=== PATIENT | male | born 1975 | race African-American/Black ===

== ENCOUNTER 2021-01-05 16:32 | Inpatient (IN) | payer OTHER, SELFPAY ==
--- NOTE | ~2021-01-05 | US_ITS ---
EXAMINATION: US ABDOMEN LIMITED CLINICAL INFORMATION: Acute cholecystitis.. COMPARISON: CT abdomen pelvis 01/05/2021 TECHNIQUE: Real-time imaging of the right upper quadrant abdominal viscera. Color Doppler exam used. FINDINGS: PANCREAS: Obscured by bowel gas LIVER: Diffuse increased echogenicity of liver parenchyma due to fatty change. No focal liver lesion or intrahepatic bile duct dilatation. The right lobe of liver is enlarged measuring 20 cm. GALLBLADDER: No gallstone or gallbladder wall thickening. No pericholecystic fluid. Sludge present in the dependent gallbladder. COMMON BILE DUCT: Normal in caliber measuring 0.4 cm in diameter. RIGHT KIDNEY: Normal. No hydronephrosis. No renal calculi or focal parenchymal lesions. The kidney measures 10.4 cm in maximum dimension. FREE FLUID: None. US/US abdomen limited IMPRESSION: 1. Diffuse fatty change of liver. Mild hepatomegaly. 2. No acute change of the gallbladder. Sludge in gallbladder. No bile duct dilatation.
--- NOTE | ~2021-01-05 | CT_ITS ---
EXAMINATION: CT ABDOMEN AND PELVIS WITHOUT CONTRAST CLINICAL INFORMATION: Diffuse abdominal pain. Worse in the epigastrium. Elevated LFTs. COMPARISON: None TECHNIQUE: Multidetector volumetric imaging was performed from the superior aspect of the liver through the pubic symphysis. Sagittal and coronal reformatted images were obtained on the technologist's workstation. This CT examination was performed using dose optimization techniques as appropriate, variously including the following: *Automated exposure control *Adjustment of mA and/or kV according to patient size (this includes techniques or standardized protocols for targeted exams where dose is matched to indication/reason for exam; i.e. extremities or head) *Use of iterative reconstruction technique DLP: 485 mGy-cm FINDINGS: LUNG BASES: The visualized lung bases are unremarkable. LIVER, GALLBLADDER, AND BILIARY TREE: There is marked low attenuation of liver parenchyma due to fatty change. The liver is mildly enlarged. The right lobe of liver measures 20 cm superior inferior. There is no focal liver lesion or intrahepatic bile duct dilatation. There is mildly high density material filling the dependent half of the gallbladder. The nondependent half has isodense fluid with the liver. No radiopaque gallstone. PANCREAS: There is edema around the pancreas. This is consistent with a pancreatitis. The density of the pancreatic parenchyma is homogeneous. No pancreatic duct dilatation or pancreatic calcification. The fluid from the pancreatitis tracks along the right anterior pararenal fascia into the right paracolic gutter and tracks into the cul-de-sac and the pelvis. No pseudocyst formation. SPLEEN: Unremarkable. ADRENAL GLANDS: Unremarkable. KIDNEYS AND URETERS: The kidneys are normal in size, shape, and attenuation. No hydronephrosis, hydroureter, or calculi seen. No perinephric stranding. BLADDER: Unremarkable. GASTROINTESTINAL TRACT: There is mild dilatation of small bowel loops with air-fluid levels but no transition point. Gas also mildly distends the transverse colon. Bowel pattern suggests ileus. No bowel wall thickening or edema. The appendix is not seen. ABDOMINAL WALL: No significant hernia is appreciated. LYMPH NODES: Normal. VASCULAR: Unremarkable. PELVIC VISCERA: Unremarkable. OSSEOUS STRUCTURES: Unremarkable. CT/CT abdomen pelvis wo con IMPRESSION: 1. Pancreatitis. 2. Distended loops of bowel most consistent with ileus. 3. Diffuse fatty change of liver. Mild hepatomegaly. 4. High density material dependent gallbladder. This is likely due to sludge.
[2021-01-05 16:36] VITALS: BP 136/74; PULSE 103; RESP 18; TEMP 37.6; O2SAT 100; BMI 25.5
[2021-01-05 18:45] LABS: Basophils Percent Auto 0.1 % (0-2); Eosinophils Percent Auto 0.1 % (0-4); Hematocrit 38.6 % (42-52); Hemoglobin 14.8 g/dl (14.0-18.0); Imm Gran Abs Auto 0.03 X10*3/uL (0.00-0.03); Imm Gran Pct Auto 0.4 % (0.0-0.4); Lymphocytes Absolute Auto 0.8 X10*3/uL (1.2-4.9); MANUAL DIFF FLAG SCAN; Mean Corpuscular Hemoglobin 31.9 pg (27.0-33.0); Mean Corpuscular Volume 83.2 fL (80-98); Mean Platelet Volume 12.6 fL (9.4-12.4); Monocytes Absolute Auto 0.3 X10*3/uL (0.1-1.2); Monocytes Percent Auto 3.6 % (2-11); Neutrophils Absolute Auto 5.9 X10*3/uL (2.0-8.3); Neutrophils Percent Auto 83.8 % (45-73); Red Blood Count 4.64 X10*6/uL (4.60-5.80); Red Cell Distribution Width 13.8 % (11.0-16.0); SCAN SMEAR FLAG 1
[2021-01-05 19:06] LABS: Alanine Aminotransferase 200 U/L (0-40); Albumin Level 3.1 g/dL (3.5-5.0); Alkaline Phosphatase 171 U/L (39-117); Anion Gap 13 (12-20); Aspartate Amino Transferase 195 U/L (5-37); Bilirubin Direct 0.6 mg/dL (0.0-0.5); Bilirubin Total 1.1 mg/dL (0.0-1.0); Blood Urea Nitrogen 3 mg/dL (9-16); Calcium 7.6 mg/dL (8.4-10.2); Carbon Dioxide 24 mmol/L (22-29); Chloride 96 mmol/L (96-108); Creatinine Clr Calc Pharmacy 113.3; Estimated Glomerular Filt Rate > 60; Glucose Random 86 mg/dL (60-115); Lipase 413 U/L (8-78); Potassium 3.4 mmol/L (3.3-5.1); Sodium 130 mmol/L (135-145); Total Protein 6.9 g/dL (6.5-8.0)
[2021-01-05 19:17] LABS: Platelet Count 70 X10*3/uL (160-400)
[2021-01-05 19:19] LABS: Mean Corpuscular HGB Conc 38.3 g/dl (31.0-36.0); SLIDE REVIEW VERIFIED
[2021-01-05 19:51] VITALS: BP 117/72; PULSE 105; RESP 18; TEMP 37.8; O2SAT 96
[2021-01-05 20:00] VITALS: BP 105/76; PULSE 104; RESP 24
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
[2021-01-05 20:11] VITALS: RESP 24
[2021-01-05] MEDS: Morphine Sulfate 4 MG/ML CARTRIDGE IVPUSH (20:11)
[2021-01-05] MEDS: ondansetron HCL 4 MG/2 ML VIAL IVPUSH (20:12)
[2021-01-05 21:13] LABS: IDNOW Serial# 9DD0AD1C
[2021-01-05 21:14] LABS: COVID-19 Test Negative (Negative)
[2021-01-05 22:00] VITALS: BP 120/78; PULSE 96; RESP 18; O2SAT 94
--- NOTE | 2021-01-05 22:47 | PM.IMHP ---
History of Present Illness Date of Service: 01/05/21 Chief Complaint: Abdominal pain High patient is a 45-year-old male with no significant past medical history who presents to the hospital with complaints of abdominal pain. Patient reports that he went to [facility] on the day prior for the same, but was kicked out of the hospital after refusing Ativan for alcohol withdrawal. Patient describes the pain as epigastric, 9/10, radiating to the chest, and pelvis area, not associated with any nausea or vomiting but has been feeling chills and feverish. No previous similar episode. No exacerbating or relieving factors. Patient reports that for the past multiple months has been drinking heavily every day about 8-10 beers daily. He denies having any headache, change in vision, chest pain, no diarrhea constipation, no urinary symptoms and no lower extremity edema. No weakness numbness or tingling. On arrival to the ED hemodynamically stable with no significant abnormal vitals Labs are significant for WBC count of 7, sodium of 130, potassium 3.4, BUN of 3, creatinine of 0.8, total bili of 1.1, direct bili 0.6, AST of 195, ALT of 200, alk-phos of 171 lipase of 413. Abdominal CT shows pancreatitis, distended loops of bowels most consistent with ileus. Diffuse fatty changes of liver with hepatomegaly. And dense material dependent gallbladder. This is likely due to sludge. Spoke extensively with patient about his alcohol use and most likely cause of his pancreatitis. Patient would like to quit. Currently is not interested in starting any medication for his potential withdrawals and would like to wait until he starts withdrawing before he starts taking any withdrawal medications. His last drink was 2 days ago. Patient will be admitted for further management of acute pancreatitis Review of Systems Review of Systems: Yes all other systems are reviewed and are negative PMFSH Medical History Alcohol abuse Pertinent family history: Denies Social History Alcohol intake: current Alcohol intake frequency: 3 or more drinks per day Alcohol type: beer Smoking Status: Current every day smoker Smoked in Last 30 Days: Yes Use of substances other than those prescribed or required for medical reasons: No Advance Directives: No Advance Directives Information Provided: Yes Meds Allergies Allergy/AdvReac Type Severity Reaction Status Date / Time No Known Allergies Allergy Verified 01/05/21 22:49 Home Medications Medication Instructions Recorded Confirmed Last Taken Type No Known Home Meds 01/05/21 01/05/21 Unknown History Physical Exam Vital Signs and Narrative: Vital Signs: Last Vital Signs Temp 100.0 F 01/05/21 19:51 Pulse 96 01/05/21 22:00 Resp 18 01/05/21 22:00 BP 120/78 01/05/21 22:00 Pulse Ox 94 01/05/21 22:00 Body Mass Index 25.5 Const: General: cooperative and no acute distress Orientation/consciousness: patient oriented x3 Eyes: General: appearance normal, both eyes and all related structures Resp: Effort & Inspection: normal respiratory effort and able to speak in complete sentences Cardio: Rate: regular rate Rhythm: regular rhythm GI: Other: Diffuse Abdominal tenderness, guarding, no rebound Palpation (GI): Soft to palpation Auscultation: Hyperactive bowel sounds present Skin: General skin exam: no rashes or lesions noted Neuro: General: patient oriented x3 Cognition (Neuro): normal cognition Extrem: General: Yes normal to inspection and Yes no pedal edema Results Labs CBC and Chem 7: 01/05/21 18:21 01/05/21 18:21 Labs: Laboratory Results - last 24 hr 01/05/21 01/05/21 01/05/21 18:20 18:21 18:21 MCV 83.2 MCH 31.9 MCHC 38.3 H RDW 13.8 Plt Count 70 L MPV 12.6 H Immature Gran % (Auto) 0.4 Neut % (Auto) 83.8 H Lymph % (Auto) 12.0 L [place] % (Auto) 3.6 Eos % (Auto) 0.1 Baso % (Auto) 0.1 Lymph # (Auto) 0.8 L [place] # (Auto) 0.3 Eos # (Auto) 0.0 Baso # (Auto) 0.0 Abs Immat Gran (auto) 0.03 Absolute Neuts (auto) 5.9 Absolute Nucleated RBC 0.000 Nucleated RBC % (auto) 0.0 Smear Tech's Comments VERIFIED Hold Purple Top Hold Blue Top SEE NOTE Anion Gap 13 Estim Creat Clear Calc 113.3 Estimated GFR > 60 Random Glucose 86 Calcium 7.6 L Total Bilirubin 1.1 H Direct Bilirubin 0.6 H AST 195 H ALT 200 H Alkaline Phosphatase 171 H Total Protein 6.9 Albumin 3.1 L Lipase 413 H COVID-19 (GUILLERMINA) COVID-19 Clin Com 01/05/21 01/05/21 18:21 20:16 MCV MCH MCHC RDW Plt Count MPV Immature Gran % (Auto) Neut % (Auto) Lymph % (Auto) [place] % (Auto) Eos % (Auto) Baso % (Auto) Lymph # (Auto) [place] # (Auto) Eos # (Auto) Baso # (Auto) Abs Immat Gran (auto) Absolute Neuts (auto) Absolute Nucleated RBC Nucleated RBC % (auto) Smear Tech's Comments Hold Purple Top SEE NOTE Hold Blue Top Anion Gap Estim Creat Clear Calc Estimated GFR Random Glucose Calcium Total Bilirubin Direct Bilirubin AST ALT Alkaline Phosphatase Total Protein Albumin Lipase COVID-19 (GUILLERMINA) Negative COVID-19 Clin Com See Note Imaging Radiologist's Impressions: Impressions Abdomen/Pelvis CT 01/05/21 19:59 IMPRESSION: 1. Pancreatitis. 2. Distended loops of bowel most consistent with ileus. 3. Diffuse fatty change of liver. Mild hepatomegaly. 4. High density material dependent gallbladder. This is likely due to sludge. Assessment and Plan (1) Acute pancreatitis: Qualifiers: Acute pancreatitis complication: unspecified Pancreatitis type: alcohol induced Qualified Code(s): K85.20 - Alcohol induced acute pancreatitis without necrosis or infection Status: Acute (2) Ileus: Status: Acute (3) Transaminitis: Status: Acute (4) Alcohol abuse: Status: Inactive This is a 45-year-old male with past medical history of alcohol abuse who presents to the hospital with abdominal pain found to have acute pancreatitis # acute pancreatitis - most likely secondary to alcohol abuse, does have abnormal findings of the gallbladder but no evidence of cholecystitis or gallbladder stone - will start him on IV fluids - pain control - will also consult surgery for possible evaluation of the transaminitis secondary to gallbladder sludge # ileus - most likely secondary to pancreatitis - will offer him bowel rest - and supportive measures # transaminitis - ALT more than AST, also has alk phos elevation - CT an abdominal ultrasound both demonstrated sludge with no evidence of cholelithiasis, cholangitis or any duct stones - will consult general surgery # alcohol abuse - will start patient on CIWA - Supplement with THiamine and folic acid daily - willing to start phenobarb if necessary prophylaxis: Lovenox
[2021-01-06] VITALS (7 sets, daily range): BP systolic 102–132; BP diastolic 67–86; PULSE 80–98; RESP 14–18; TEMP 36.5–37.9; O2SAT 95–98
[2021-01-06 07:21] LABS: MANUAL DIFF FLAG NO
[2021-01-06 07:27] LABS: Basophils Percent Auto 0.2 % (0-2); Eosinophils Absolute Auto 0.1 X10*3/uL (0.0-0.4); Eosinophils Percent Auto 0.9 % (0-4); Hematocrit 35.7 % (42-52); Hemoglobin 13.3 g/dl (14.0-18.0); Imm Gran Abs Auto 0.03 X10*3/uL (0.00-0.03); Imm Gran Pct Auto 0.5 % (0.0-0.4); Lymphocytes Absolute Auto 1.1 X10*3/uL (1.2-4.9); Lymphocytes Percent Auto 16.3 % (20-40); Mean Corpuscular HGB Conc 37.3 g/dl (31.0-36.0); Mean Corpuscular Volume 83.2 fL (80-98); Mean Platelet Volume 12.8 fL (9.4-12.4); Monocytes Absolute Auto 0.4 X10*3/uL (0.1-1.2); Monocytes Percent Auto 5.6 % (2-11); Neutrophils Absolute Auto 4.9 X10*3/uL (2.0-8.3); Neutrophils Percent Auto 76.5 % (45-73); Red Blood Count 4.29 X10*6/uL (4.60-5.80); Red Cell Distribution Width 13.6 % (11.0-16.0); White Blood Count 6.4 X10*3/uL (4.8-10.8)
[2021-01-06 07:59] LABS: Anion Gap 15 (12-20); Blood Urea Nitrogen 4 mg/dL (9-16); Calcium 7.7 mg/dL (8.4-10.2); Carbon Dioxide 23 mmol/L (22-29); Chloride 102 mmol/L (96-108); Estimated Glomerular Filt Rate > 60; Glucose Random 72 mg/dL (60-115); Potassium 3.5 mmol/L (3.3-5.1); Sodium 136 mmol/L (135-145)
[2021-01-06] MEDS: Folic Acid 1 MG TABLET PO (08:00)
[2021-01-06] MEDS: Thiamine HCL 100 MG TABLET PO (08:00)
[2021-01-06] MEDS: Enoxaparin Sodium 40 MG/0.4 ML SYRINGE SUBCUT (08:03)
--- NOTE | 2021-01-06 08:07 | PC.NURSE ---
PT REQUESTING VITAMIN WATER/GATORADE. INFORMED OF NPO STATUS. STATES WANTS TO GO TO STORE AND THEN WILL COME BACK. HARD TO RE-DIRECT. AMB TO [facility], VOIDED.
[2021-01-06 08:21] LABS: Platelet Count 58 X10*3/uL (160-400)
[2021-01-06 08:33] LABS: Alanine Aminotransferase 144 U/L (0-40); Albumin Level 2.7 g/dL (3.5-5.0); Alkaline Phosphatase 146 U/L (39-117); Aspartate Amino Transferase 118 U/L (5-37); Bilirubin Direct 0.5 mg/dL (0.0-0.5); Total Protein 5.8 g/dL (6.5-8.0)
[2021-01-06] MEDS: 0.9 % Sodium Chloride 1,000 ML 150 ML IVCONT ×2 (09:48→23:04)
--- NOTE | 2021-01-06 10:31 | MHC.CM.ED ---
Attempted to meet with patient in regards to discharge planning. Patient is currently sleeping. Will attemtp to meet again. Continue to monitor for d/c needs.
[2021-01-06] MEDS: hydrOXYzine HCL 25 MG TABLET PO ×2 (11:22→20:16)
--- NOTE | 2021-01-06 11:34 | PC.NURSE ---
Pt became very agitated asking to go to the cafeteria and raising his voice at staff. He was able to be re-directed back to bed. Juice was offered. He was given PRN Atarax and offered blankets. He was made comfortable in his bed and at this time is calm and cooperative.
--- NOTE | 2021-01-06 12:15 | HO.PM.IMPN ---
Subjective Subjective Date of Service: 01/06/21 Interval History: the patient was seen and evaluated this morning Laying in bed, complaining of epigastric pain and nausea Denies any fever, chills or shortness of breath No reported other overnight events. Systemic review: No fever, chills or weakness No chest pain, palpitation No shortness of breath or coughing Abdominal pain, nausea, episodes of vomiting No urinary symptoms No any rash or wounds Physical Exam Vital Signs: Vital Signs: Last Vital Signs Temp 97.7 F 01/06/21 11:21 Pulse 96 01/06/21 11:21 Resp 18 01/06/21 11:21 BP 111/79 01/06/21 11:21 Pulse Ox 96 01/06/21 11:21 Body Mass Index 25.5 Const: Other: Constitutional : Alert, oriented, not in distress Neck : Normal inspection, Supple Cardiovascular : RRR, S1 S2, no lower extremity edema Respiratory : Good bilateral air entry, no crackles, wheezes or rhonchi Gastrointestinal: soft, lax, decreased bowel sounds, generalized tenderness mainly in the upper part of the abdomen, no surgical signs Skin : Warm/Dry, No rash Neurological : Alert & oriented x3, No focal deficit Objective Data Current Medications Generic Name Dose Route Start Last Admin Trade Name Freq PRN Reason Stop Dose Admin Acetaminophen 650 mg 01/06/21 03:20 Acetaminophen 325 Mg Tablet PO Q6H PRN Pain, Mild (Pain Scale 1-3) Enoxaparin Sodium 40 mg 01/06/21 09:00 01/06/21 08:03 Enoxaparin Sodium 40 Mg/0.4 Ml Syringe SUBCUT 40 mg Q24H CHANTALE Administration Folic Acid 1 mg 01/06/21 09:00 01/06/21 08:00 Folic Acid 1 Mg Tablet PO 1 mg DAILY CHANTALE Administration Hydroxyzine HCl 25 mg 01/06/21 03:20 01/06/21 11:22 Hydroxyzine Hcl 25 Mg Tablet PO 25 mg Q8H PRN Administration anxiety/restlessness Sodium Chloride 1,000 mls @ 150 mls/hr 01/06/21 08:15 01/06/21 09:48 Ns IVCONT 01/08/21 00:14 150 mls/hr .Q6H40M CHANTALE Administration Morphine Sulfate 4 mg 01/06/21 07:52 Morphine Sulfate 4 Mg/Ml Cartridge IVPUSH Q4H PRN Pain, Severe (Pain Scale 7-10) Ondansetron HCl 4 mg 01/06/21 03:20 Ondansetron Hcl 4 Mg/2 Ml Vial IVPUSH Q8H PRN Nausea and Vomiting Sodium Chloride 3 ml 01/06/21 03:20 01/06/21 10:21 0.9 % Sodium Chloride Flush 3 Ml Syringe IVFLUSH Not Given QSHIFT CHANTALE Thiamine HCl 100 mg 01/06/21 09:00 01/06/21 08:00 Thiamine Hcl 100 Mg Tablet PO 100 mg DAILY CHANTALE Administration Labs CBC & Chem 7: 01/06/21 07:15 01/06/21 07:15 Assessment and Plan (1) Acute pancreatitis: Status: Acute (2) Ileus: Status: Acute (3) Transaminitis: Status: Acute (4) Alcohol abuse: Status: Inactive Assessment and Plan: This is a 45-year-old male with past medical history of alcohol abuse who presents to the hospital with abdominal pain found to have acute pancreatitis acute alcoholic pancreatitis secondary to alcohol abuse Ultrasound showing sludge of gallbladder but no evidence of cholecystitis or gallbladder stone Continue aggressive IV fluid Morphine for pain control With Zofran for nausea Clear liquid diet as tolerated ileus secondary to pancreatitis Passing gas this morning IVF, clear liquids Pending surgery evaluation transaminitis CT an abdominal ultrasound both demonstrated sludge with no evidence of cholelithiasis, cholangitis or any duct stones Improving, likely from drinking History of alcohol abuse Risk of withdrawal Continue patient on CIWA Supplement with THiamine and folic acid daily Monitor for the need of phenobarbital prophylaxis: Lovenox
--- NOTE | 2021-01-06 12:56 | PM.CNGS ---
History of Present Illness Consult details Consult date: 01/06/21 Narrative: 45M admitted early this morning for actue pancreatitis. He admits to being a heavy drinker. He usually has several bottles of bear everyday. He did not want to be interviewed so the history is mostly based on the admitting notes. He apparently had gone to another institution for abdominal pain but ad refused ativan for ETOH withdrawal so he was (?)kicked out. He did state that he has been stressed and has had anxiety for a long time now, hence the heavy drinking. Other than that, he states that he really did not want to answet questions. His CT showed findings c/w acute pancreatitis. Review of Systems Constitutional: Constitutional: Denies chills and Denies fever(s) Cardiovascular: Cardiovascular: Denies chest pain, Denies dyspnea and Denies dyspnea on exertion Respiratory: Respiratory: Denies cough, Denies dyspnea and Denies dyspnea on exertion Gastrointestinal: Gastrointestinal: Denies hematochezia and Denies change in bowel habits Genitourinary: Genitourinary: Denies hematuria and Denies difficulty urinating Musculoskeletal: Musculoskeletal: Denies back pain and Denies limited range of motion Neurologic: Denies focal weakness and Denies convulsions Psychiatric: Psychiatric: Denies depression and Denies mood swings PMFSH Past Medical History Medical History Alcohol abuse Social History Social History Alcohol intake: current Alcohol intake frequency: 3 or more drinks per day Alcohol type: beer Smoking Status: Current every day smoker Smoked in Last 30 Days: Yes Use of substances other than those prescribed or required for medical reasons: No Advance Directives: No Advance Directives Information Provided: Yes Meds Allergies Allergy/AdvReac Type Severity Reaction Status Date / Time No Known Allergies Allergy Verified 01/05/21 22:49 Active Medications: Current Medications Generic Name Dose Route Start Last Admin Trade Name Freq PRN Reason Stop Dose Admin Acetaminophen 650 mg 01/06/21 03:20 Acetaminophen 325 Mg Tablet PO Q6H PRN Pain, Mild (Pain Scale 1-3) Enoxaparin Sodium 40 mg 01/06/21 09:00 01/06/21 08:03 Enoxaparin Sodium 40 Mg/0.4 Ml Syringe SUBCUT 40 mg Q24H CHANTALE Administration Folic Acid 1 mg 01/06/21 09:00 01/06/21 08:00 Folic Acid 1 Mg Tablet PO 1 mg DAILY CHANTALE Administration Hydroxyzine HCl 25 mg 01/06/21 03:20 01/06/21 11:22 Hydroxyzine Hcl 25 Mg Tablet PO 25 mg Q8H PRN Administration anxiety/restlessness Sodium Chloride 1,000 mls @ 150 mls/hr 01/06/21 08:15 01/06/21 09:48 Ns IVCONT 01/08/21 00:14 150 mls/hr .Q6H40M CHANTALE Administration Morphine Sulfate 4 mg 01/06/21 07:52 Morphine Sulfate 4 Mg/Ml Cartridge IVPUSH Q4H PRN Pain, Severe (Pain Scale 7-10) Ondansetron HCl 4 mg 01/06/21 03:20 Ondansetron Hcl 4 Mg/2 Ml Vial IVPUSH Q8H PRN Nausea and Vomiting Sodium Chloride 3 ml 01/06/21 03:20 01/06/21 10:21 0.9 % Sodium Chloride Flush 3 Ml Syringe IVFLUSH Not Given QSHIFT [facility] Thiamine HCl 100 mg 01/06/21 09:00 01/06/21 08:00 Thiamine Hcl 100 Mg Tablet PO 100 mg DAILY CHANTALE Administration Home Medications Medication Instructions Recorded Confirmed Last Taken Type No Known Home Meds 01/05/21 01/05/21 Unknown History Physical Exam Vital Signs: Vital Signs: Last Vital Signs Temp 97.7 F 01/06/21 11:21 Pulse 96 01/06/21 11:21 Resp 18 01/06/21 11:21 BP 111/79 01/06/21 11:21 Pulse Ox 96 01/06/21 11:21 Body Mass Index 25.5 Const: General: comfortable and no acute distress Orientation/consciousness: patient oriented x3 Neck: Neck: Yes no lymphadenopathy Resp: Auscultation: clear to auscultation bilaterally Cardio: Rhythm: regular rhythm GI: Palpation (GI): Soft to palpation, nontender and no guarding Neuro: General: patient oriented x3 Results Labs Result diagrams: 01/06/21 07:15 01/06/21 07:15 Labs: Abnormal lab results 01/05/21 01/05/21 01/06/21 Range/Units 18:21 18:21 07:15 RBC 4.29 L (4.60-5.80) X10*6/uL Hgb 13.3 L (14.0-18.0) g/dl Hct 38.6 L 35.7 L (42-52) % MCHC 38.3 H 37.3 H (31.0-36.0) g/dl Plt Count 70 L 58 L (160-400) X10*3/uL MPV 12.6 H 12.8 H (9.4-12.4) fL Immature Gran % (Auto) 0.5 H (0.0-0.4) % Neut % (Auto) 83.8 H 76.5 H (45-73) % Lymph % (Auto) 12.0 L 16.3 L (20-40) % Lymph # (Auto) 0.8 L 1.1 L (1.2-4.9) X10*3/uL Sodium 130 L (135-145) mmol/L BUN 3 L (9-16) mg/dL Calcium 7.6 L (8.4-10.2) mg/dL Total Bilirubin 1.1 H (0.0-1.0) mg/dL Direct Bilirubin 0.6 H (0.0-0.5) mg/dL AST 195 H (5-37) U/L ALT 200 H (0-40) U/L Alkaline Phosphatase 171 H (39-117) U/L Total Protein (6.5-8.0) g/dL Albumin 3.1 L (3.5-5.0) g/dL Lipase 413 H (8-78) U/L 01/06/21 Range/Units 07:15 RBC (4.60-5.80) X10*6/uL Hgb (14.0-18.0) g/dl Hct (42-52) % MCHC (31.0-36.0) g/dl Plt Count (160-400) X10*3/uL MPV (9.4-12.4) fL Immature Gran % (Auto) (0.0-0.4) % Neut % (Auto) (45-73) % Lymph % (Auto) (20-40) % Lymph # (Auto) (1.2-4.9) X10*3/uL Sodium (135-145) mmol/L BUN 4 L (9-16) mg/dL Calcium 7.7 L (8.4-10.2) mg/dL Total Bilirubin (0.0-1.0) mg/dL Direct Bilirubin (0.0-0.5) mg/dL AST 118 H (5-37) U/L ALT 144 H (0-40) U/L Alkaline Phosphatase 146 H (39-117) U/L Total Protein 5.8 L (6.5-8.0) g/dL Albumin 2.7 L (3.5-5.0) g/dL Lipase (8-78) U/L Short CBC 01/05/21 01/06/21 Range/Units 18:21 07:15 WBC 7.0 6.4 (4.8-10.8) X10*3/uL Hgb 14.8 13.3 L (14.0-18.0) g/dl Hct 38.6 L 35.7 L (42-52) % Plt Count 70 L 58 L (160-400) X10*3/uL BMP 01/05/21 01/06/21 18:21 07:15 Sodium 130 L 136 Potassium 3.4 3.5 Chloride 96 102 Carbon Dioxide 24 23 BUN 3 L 4 L Creatinine 0.84 0.89 Calcium 7.6 L 7.7 L Liver Function 01/05/21 01/06/21 Range/Units 18:21 07:15 Total Bilirubin 1.1 H 1.0 (0.0-1.0) mg/dL Direct Bilirubin 0.6 H 0.5 (0.0-0.5) mg/dL AST 195 H 118 H (5-37) U/L ALT 200 H 144 H (0-40) U/L Alkaline Phosphatase 171 H 146 H (39-117) U/L Albumin 3.1 L 2.7 L (3.5-5.0) g/dL All other labs normal. Imaging Abdomen CT scan report/results: report reviewed and image reviewed Abdominal ultrasound report/results: report reviewed and image reviewed Assessment and Plan (1) Acute pancreatitis: Qualifiers: Acute pancreatitis complication: unspecified Pancreatitis type: alcohol induced Qualified Code(s): K85.20 - Alcohol induced acute pancreatitis without necrosis or infection Status: Acute He has abdominal pain, with elevation of LFTs, lipase, as well as CT findings c/w acute pancreatitis, uncomplicated. Etiology is likely from ETOH abuse. His US shows GB sludge, but this is unlikely to be the causative factor for his pancreatitis. He nacho not have evidence of cholecystitis. I agree with managing him as ETOH pancreatitis. He should be monitored for withdrawal symptoms as well. He may have clear liquids. His abdominal exam is benign otherwise. I will follow along while he is in the hospital. Please note that the patient did not really want to answer most questions during the interview, and stated he wanted to be left alone by himself for now. Procedures Date of Service Date of Service: 01/06/21
--- NOTE | 2021-01-06 14:20 | MHC.CM.PN ---
EMR REVIEWED, PT ADMITTED WITH ACUTE PANCREATITIS, CM MET WITH PT WHO IS IRRITABLE AND DECLINING MULTIPLE QUESTIONS, PT WOULD NOT VERIFY AN ADDRESS HOWEVER REPORTS ADDRESS ON FILE IS HIS MAILING ADDRESS, THIS ADDRESS IS ALSO THE [facility] [address] IN [place], PT REFUSES TO ANSWER MOST QUESTIONS, PT DOES REPORT HIS PCP IS LINDSEY BRODY WHO WORKS IN [place], PT DOES REPORT HE WAS IN THE [employer] [facility] MANY YEARS AGO HOWEVER DOES NOT HAVE SERVICES, PT DOES REPORT HE HAS [facility], PT ADAMANTLY DECLINES A HCP, AND WHEN ASKED ABOUT ANTICIPATED SERVICES AFTER D/C PT STATES, GETTING OUT OF THIS [facility] PT REFUSED TO GIVE OUT ANY OTHER PERSONAL INFO AND TOLD CM TO LEAVE. DISCHARGE HOME W/NO SERVICES, MAY NEED TRANSPORTATION, PT CURRENTLY DENYING SUBSTANCE ABUSE SERVICES PCP: LINDSEY BRODY HCP: PT DECLINES
[2021-01-06] MEDS: 0.9 % Sodium Chloride Flush 3 ML SYRINGE IVFLUSH (17:55)
[2021-01-06] MEDS: Morphine Sulfate 4 MG/ML CARTRIDGE IVPUSH (20:17)
[2021-01-07 04:00] VITALS: BP 108/75; PULSE 86; RESP 18; TEMP 36.2; O2SAT 94
--- NOTE | 2021-01-07 07:55 | PC.NURSE ---
patient refuses to let me examine him. states he is hungry and would like food. i explained disease process, ivf and clear liquid diet. patient states i dontcare, just give me food . patient found at desk fully dressed after 5 minutes, states i would like my IV out and to leave. i requested he remove his coat so that i could removed his coat. he began to swear loudly, states that he doesnt need me to take out his IV and removed it on his own. continued to swear and exited at the elevator. security called and were able confirm that he left the building. aware
--- NOTE | 2021-01-07 11:33 | PM.EVENT ---
Event Note Date of Service: 01/07/21 Event Note: Discharge note Discharge diagnosis acute alcoholic pancreatitis ileus transaminitis alcohol abuse with Risk of withdrawal The patient was admitted to the hospital for treatment of acute pancreatitis. He decided to leave the hospital to next morning against medical advice and without waiting the physician to talk to him. He took his IV line and left.
== END 2021-01-07 09:27 | disposition left against medical advice (07) | DRG 282 ==
LOC: HO.ED 21:59 → HO.EDOVER 22:51 → HO.S3 01-06 16:58
PROVIDERS: Admitting Provider Internal Medicine; Emergency Provider Emergency Medicine; PCP Internal Medicine; Visit Provider Student in an Organized Health Care Education/Training Program
DX: K85.20 Alcohol induced acute pancreatitis without necrosis or infection (principal); K56.7 Ileus, unspecified; F10.10 Alcohol abuse, uncomplicated; F17.210 Nicotine dependence, cigarettes, uncomplicated; R74.01 Elevation of levels of liver transaminase levels; Z71.6 Tobacco abuse counseling; Z20.822 Contact with and (suspected) exposure to COVID-19
CPT/HCPCS: 36415; 74176; 76705; 80048; 80076; 83690; 85025; 87635; 96361; 96374; 99285; J1650; J2270; J2405